=== PATIENT | male | born 1935 | race Asian ===

== ENCOUNTER 2017-02-12 21:35 | Emergency (ER) | payer OTHER ==
[~2017-02-12] VITALS: Ht 152.4 cm; Wt 72.5 kg
[~2017-02-12 21:35] MED LIST: AMLO-511 PO; DUTA.5 PO; ISOS60TA4 PO; TERA5 PO
[2017-02-12] MEDS ORDERED: DILT360C32 PO (21:43)
[2017-02-12 22:42] LABS: EOSINOPHILS % (AUTO) 0.1 % (1.0-6.0); HEMATOCRIT 31.4 % (41-53); HEMOGLOBIN 10.6 g/dL (13.5-17.5); LYMPHOCYTES # (AUTO) 0.9 K/uL (1.0-4.8); LYMPHOCYTES % (AUTO) 6.3 % (22.0-44.0); MEAN CORPUSCULAR HGB CONC 33.7 G/dL (31.0-37.0); MEAN CORPUSCULAR VOLUME 92 fL (80-100); MONOCYTES # (AUTO) 1.8 K/uL (0.1-1.0); MONOCYTES % (AUTO) 12.1 % (2.0-9.0); NEUTROPHILS # (AUTO) 12.2 K/uL (1.8-7.7); NEUTROPHILS % (AUTO) 81.5 % (40.0-70.0); PLATELET COUNT (AUTO) 528 K/uL (150-450); RED BLOOD CELL COUNT(AUTO) 3.41 MIL/uL (4.50-5.90); RED CELL DISTRIBUTION WIDTH 14.7 % (11.5-14.5); WHITE BLOOD COUNT (AUTO) 14.9 K/uL (4.5-11.0)
[2017-02-12 22:50] LABS: APPEARANCE,URINE CLOUDY (CLEAR); GLUCOSE, URINE (UA) NEGATIVE (NEGATIVE); KETONES,URINE TRACE mg/dL (NEGATIVE); LEUKOCYTE ESTERASE ,URINE MODERATE (NEGATIVE); OCCULT BLOOD,URINE NEGATIVE (NEGATIVE); PROTEIN,URINE POS 1+ (NEGATIVE)
[2017-02-12 23:03] LABS: ADD UA MICROSCOPIC YES
[2017-02-12 23:08] LABS: RBC,URINE None Seen /HPF (0-2)
[2017-02-12 23:13] LABS: TROPONIN I < 0.02 ng/mL (0.00-0.05)
[2017-02-12 23:16] LABS: ALANINE AMINOTRANSFERASE 37 U/L (12-78); ANION GAP 11 mmol/L (8-16); ASPARTATE AMINOTRANSFERASE 37 U/L (15-37); B-TYPE NATRIURETIC PEPTIDE 78 pg/mL (0-100); BILIRUBIN,TOTAL 8.5 mg/dL (0.1-1.0); CALCIUM, TOTAL 8.5 mg/dL (8.8-10.5); CARBON DIOXIDE 26 mmol/L (22-29); CHLORIDE 99 mmol/L (98-107); CREATINE KINASE MB 0.6 ng/mL (0-5); CREATINE KINASE, TOTAL 82 U/L (39-308); CREATININE 1.61 mg/dL (0.60-1.30); GLOMERULAR FILTR. RATE CALC 41 mL/min (>60); SODIUM SERUM 136 mmol/L (136-145); TOTAL PROTEIN, SERUM 6.5 g/dL (6.4-8.2); UREA NITROGEN, BLOOD 24 mg/dL (7-18)
[2017-02-12 23:20] LABS: AMMONIA 19 umol/L (11-32); POTASSIUM 2.9 mmol/L (3.5-5.1)
[2017-02-13] MEDS: POTASSIUM CHL 10 MEQ/WATER 50 ML IV SCH ×2 (00:15→01:25)
[2017-02-13] MEDS ORDERED: PIPERACILLIN/TAZO 3.375 GM/D5W 50 ML IV ONE (03:15)
[2017-02-13 03:35] VITALS: BP 130/60
== END 2017-02-13 03:58 | disposition short-term general hospital (02) ==
LOC: EMS 21:36
DX: K76.89 Other specified diseases of liver (principal); E87.6 Hypokalemia; J98.11 Atelectasis; I10 Essential (primary) hypertension
CPT/HCPCS: 36415; 74022; 74176; 80053; 81001; 82140; 82550; 82553; 83605; 83690; 83880; 84484; 85025; 87040; 87077; 87086; 87186; 93005; 96365; 96367; 99285; J2543; J3480 ×2

== ENCOUNTER 2021-05-08 10:12 | Emergency (ER) | payer MEDICARE, MEDICAID ==
[~2021-05-08] VITALS: Ht 160 cm; Wt 66.8 kg
[~2021-05-08 10:12] MED LIST changes: +AMLO-257 PO; -AMLO-511 PO; +AMOX1TAB16 PO; +DILT360C32 PO; -ISOS60TA4 PO; +ISOS60TA58 PO; -TERA5 PO; +TERA5CAP77 PO
[2021-05-08 11:56] LABS: HEMATOCRIT 38.5 % (41-53); MEAN CORPUSCULAR HEMOGLOBIN 31.2 pg (26.0-34.0); MEAN CORPUSCULAR HGB CONC 33.8 G/dL (31.0-37.0); MEAN CORPUSCULAR VOLUME 92 fL (80-100); PLATELET COUNT (AUTO) 261 K/uL (150-450); RED BLOOD CELL COUNT(AUTO) 4.17 MIL/uL (4.50-5.90); RED CELL DISTRIBUTION WIDTH 13.4 % (11.5-14.5)
[2021-05-08 11:58] VITALS: BP 169/93
[2021-05-08 12:07] LABS: CALCIUM, TOTAL 9.6 mg/dL (8.8-10.5); CREATININE 1.69 mg/dL (0.60-1.30); POTASSIUM 3.2 mmol/L (3.5-5.1)
[2021-05-08 12:17] LABS: ALBUMIN 3.5 g/dL (3.4-5.0); BILIRUBIN,TOTAL 1.4 mg/dL (0.1-1.0); TOTAL PROTEIN, SERUM 8.2 g/dL (6.4-8.2)
[2021-05-08 12:20] LABS: BAND NEUTROPHILS % (MANUAL) 1 % (0-5); EOSINOPHILS % (MANUAL) 17 % (1-6); LYMPHOCYTES % (MANUAL) 22 % (22-44); MONOCYTES % (MANUAL) 2 % (2-9); SEGMENTED NEUTROPHILS % 58 % (40-70)
== END 2021-05-08 13:16 | disposition home or self-care (01) ==
LOC: EMS 10:16
DX: S90.821A Blister (nonthermal), right foot, initial encounter (principal); S90.822A Blister (nonthermal), left foot, initial encounter; I10 Essential (primary) hypertension; Z90.89 Acquired absence of other organs; X58.XXXA Exposure to other specified factors, initial encounter; Y93.89 Activity, other specified; Y92.89 Other specified places as the place of occurrence of the external cause; Y99.8 Other external cause status
CPT/HCPCS: 71045; 80053; 85025; 99284; 36415-L1; 36415-TC

== ENCOUNTER 2024-03-17 11:03 | Emergency (ER) | payer MEDICARE, MEDICAID ==
[~2024-03-17] VITALS: Ht 160 cm; Wt 56.8 kg
[~2024-03-17 11:03] MED LIST changes: +AMOX-457 PO; -AMOX1TAB16 PO; -DUTA.5 PO; +DUTA0.5C38 PO
[2024-03-17 11:19] VITALS: BP 132/74; PULSE 90; RESP 18; TEMP 98; O2SAT 99
[2024-03-17] MEDS ORDERED: ATOR20TA65 PO (11:21)
[2024-03-17] MEDS ORDERED: FURO20TA4 PO (11:21)
[2024-03-17] MEDS ORDERED: INSU3INS3 SQ (11:21)
[2024-03-17] MEDS ORDERED: MIRT7.5T11 PO (11:21)
[2024-03-17] MEDS: ACETAMINOPHEN 500 MG TABLET PO ONE (11:58)
[2024-03-17] MEDS ORDERED: ACET-2247 PO (12:54)
== END 2024-03-17 13:02 | disposition home or self-care (01) ==
LOC: EMS 11:03
DX: M25.561 Pain in right knee (principal); E11.9 Type 2 diabetes mellitus without complications; E78.00 Pure hypercholesterolemia, unspecified; I10 Essential (primary) hypertension; Z79.4 Long term (current) use of insulin; Z79.899 Other long term (current) drug therapy
CPT/HCPCS: 82962; 93971; 99284; 73562-TC; Z7502; Z7610